=== PATIENT | female | born 1990 | race African-American/Black ===

== ENCOUNTER 2019-02-02 03:00 | Emergency (ER) | payer MEDICAID ==
[~2019-02-02] VITALS: Ht 170.2 cm; Wt 77.0 kg
[2019-02-02] MEDS ORDERED: LORAZEPAM 1MG TABLET PO ONE (03:45)
[2019-02-02 04:22] LABS: CLARITY URINE CLOUDY (CLEAR); COLOR URINE YELLOW (YELLOW); KETONES URINE NEGATIVE (NEGATIVE); LEUKOCYTE ESTERASE URINE NEGATIVE (NEGATIVE); NITRITE URINE NEGATIVE (NEGATIVE); OCCULT BLOOD URINE NEGATIVE (NEGATIVE); PROTEIN URINE 3+ (NEGATIVE); SPECIFIC GRAVITY URINE 1.036 (1.005-1.030)
[2019-02-02 04:23] LABS: BASOPHILS % 0.8 % (0.0-2.0); EOSINOPHILS % 0.6 % (0.0-5.0); HEMATOCRIT. 35.2 % (36.0-48.0); HEMOGLOBIN. 12.2 g/dL (12.0-16.0); LYMPHOCYTES % 28.2 % (20.0-50.0); MEAN CORPUSCULAR HEMOGLOBIN 31.1 pg (28.0-32.0); MEAN CORPUSCULAR VOLUME 89.8 fL (81.0-99.0); MEAN PLATELET VOLUME 8.8 fl (7.4-10.4); MONOCYTES % 7.5 % (2.0-8.0); NEUTROPHILS % 62.9 % (40.0-76.0); PLATELET 248 x1000/uL (130-400); RED BLOOD CELL COUNT 3.92 mill/uL (4.2-5.4); RED CELL DISTRIBUTION WIDTH 12.9 % (11.6-14.6)
[2019-02-02 04:30] LABS: CHLORIDE 108 mEq/L (98-107)
[2019-02-02 04:34] LABS: ETHANOL BLOOD < 10 mg/dL
[2019-02-02 04:37] LABS: CREATINE KINASE 79 IU/L (26-192)
[2019-02-02 04:45] LABS: *BARBITURATES SCREEN URINE NEGATIVE (NEGATIVE); *BENZODIAZEPINES SCREEN URINE NEGATIVE (NEGATIVE); *COCAINE SCREEN URINE NEGATIVE (NEGATIVE)
[2019-02-02 04:46] LABS: METHADONE URINE SCREEN NEGATIVE (NEGATIVE); OPIATES URINE SCREEN NEGATIVE (NEGATIVE); PHENCYCLIDINE URINE SCREEN NEGATIVE (NEGATIVE)
[2019-02-02 04:52] LABS: *AMPHETAMINES SCREEN URINE PRESUMTIVE POSITIVE (NEGATIVE); CANNABINOID URINE SCREEN PRESUMTIVE POSITIVE (NEGATIVE)
[2019-02-02 10:02] VITALS: BP 102/48
== END 2019-02-02 12:04 | disposition left against medical advice (07) ==
LOC: ER 03:13
DX: R44.3 Hallucinations, unspecified (principal); F31.9 Bipolar disorder, unspecified
CPT/HCPCS: 36415; 80305; 80307; 80320; 80329; 81003; 81025; 82550; 84443; 99284; G0480

== ENCOUNTER 2019-02-17 06:36 | Emergency (ER) | payer MEDICAID ==
[~2019-02-17] VITALS: Ht 160 cm; Wt 66.0 kg
[2019-02-17] MEDS ORDERED: OLANZAPINE 10 MG/VIAL IM ONE (06:45)
[2019-02-17] MEDS ORDERED: LORAZEPAM 2MG/ML CPJ IM ONE (06:45)
[2019-02-17 08:11] LABS: HEMATOCRIT. 38.6 % (36.0-48.0); HEMOGLOBIN. 13.3 g/dL (12.0-16.0); MEAN CORPUSCULAR HEMOGLOBIN 31.2 pg (28.0-32.0); MEAN CORPUSCULAR VOLUME 90.3 fL (81.0-99.0); RED BLOOD CELL COUNT 4.28 mill/uL (4.2-5.4)
[2019-02-17 08:12] LABS: MEAN PLATELET VOLUME 8.8 fl (7.4-10.4); PLATELET 227 x1000/uL (130-400); RED CELL DISTRIBUTION WIDTH 13.6 % (11.6-14.6)
[2019-02-17 08:19] LABS: CHLORIDE 113 mEq/L (98-107)
[2019-02-17 08:23] LABS: ETHANOL BLOOD < 10 mg/dL
[2019-02-17 08:30] LABS: HCG SCREEN NEGATIVE
[2019-02-17 09:28] LABS: CLARITY URINE CLOUDY (CLEAR); COLOR URINE YELLOW (YELLOW); KETONES URINE NEGATIVE (NEGATIVE); LEUKOCYTE ESTERASE URINE NEGATIVE (NEGATIVE); NITRITE URINE NEGATIVE (NEGATIVE); OCCULT BLOOD URINE 3+ (NEGATIVE); PROTEIN URINE 3+ (NEGATIVE); SPECIFIC GRAVITY URINE 1.018 (1.005-1.030)
[2019-02-17 09:54] LABS: PLATELET ESTIMATE NORMAL
[2019-02-17 10:14] LABS: *BARBITURATES SCREEN URINE NEGATIVE (NEGATIVE); *BENZODIAZEPINES SCREEN URINE NEGATIVE (NEGATIVE); *COCAINE SCREEN URINE NEGATIVE (NEGATIVE)
[2019-02-17 10:15] LABS: METHADONE URINE SCREEN NEGATIVE (NEGATIVE); OPIATES URINE SCREEN NEGATIVE (NEGATIVE); PHENCYCLIDINE URINE SCREEN NEGATIVE (NEGATIVE)
[2019-02-17 10:20] LABS: *AMPHETAMINES SCREEN URINE PRESUMTIVE POSITIVE (NEGATIVE); CANNABINOID URINE SCREEN PRESUMTIVE POSITIVE (NEGATIVE)
[2019-02-17] MEDS ORDERED: LEVOFLOXACIN 500MG TABLET PO ONE (11:30)
[2019-02-18] MEDS ORDERED: POTASSIUM CHLORIDE 20MEQ TABLET SR PO NR ×2 (11:45)
[2019-02-18] MEDS ORDERED: NITROFURANTOIN 100MG M/M CAPSULE PO ONE (15:00)
[2019-02-18 20:41] VITALS: BP 111/62
== END 2019-02-18 20:53 ==
LOC: ER 06:36
DX: F20.9 Schizophrenia, unspecified (principal); N39.0 Urinary tract infection, site not specified; F15.10 Other stimulant abuse, uncomplicated
CPT/HCPCS: 36415; 80053; 80305; 80307; 80320; 80329; 81003; 81025; 84703; 85025; 96372; 99285; J2060; J3490; G0480

== ENCOUNTER 2019-04-19 23:50 | Emergency (ER) | payer MEDICAID ==
[~2019-04-19] VITALS: Ht 165.1 cm; Wt 68.0 kg
[2019-04-20 02:53] LABS: BASOPHILS % 0.6 % (0.0-2.0); EOSINOPHILS % 1.4 % (0.0-5.0); HEMOGLOBIN. 12.4 g/dL (12.0-16.0); LYMPHOCYTES % 37.5 % (20.0-50.0); MEAN CORPUSCULAR HEMOGLOBIN 30.8 pg (28.0-32.0); MEAN CORPUSCULAR VOLUME 89.1 fL (81.0-99.0); MEAN PLATELET VOLUME 8.8 fl (7.4-10.4); MONOCYTES % 8.2 % (2.0-8.0); NEUTROPHILS % 52.3 % (40.0-76.0); PLATELET 230 x1000/uL (130-400); RED BLOOD CELL COUNT 4.04 mill/uL (4.2-5.4); RED CELL DISTRIBUTION WIDTH 12.3 % (11.6-14.6)
[2019-04-20 03:01] LABS: CHLORIDE 112 mEq/L (98-107)
[2019-04-20 03:04] LABS: ETHANOL BLOOD < 10 mg/dL
[2019-04-20 03:06] LABS: HCG SCREEN NEGATIVE
[2019-04-20] MEDS ORDERED: LORAZEPAM 1MG TABLET PO ONE (10:30)
[2019-04-20 11:28] LABS: CLARITY URINE CLOUDY (CLEAR); COLOR URINE DARK YELLOW (YELLOW); KETONES URINE TRACE (NEGATIVE); LEUKOCYTE ESTERASE URINE NEGATIVE (NEGATIVE); NITRITE URINE NEGATIVE (NEGATIVE); OCCULT BLOOD URINE NEGATIVE (NEGATIVE); PH URINE 6.5 (4.5-8.0); PROTEIN URINE 3+ (NEGATIVE); SPECIFIC GRAVITY URINE 1.041 (1.005-1.030)
[2019-04-20 12:06] LABS: *BARBITURATES SCREEN URINE NEGATIVE (NEGATIVE); *COCAINE SCREEN URINE NEGATIVE (NEGATIVE); METHADONE URINE SCREEN NEGATIVE (NEGATIVE); OPIATES URINE SCREEN NEGATIVE (NEGATIVE); PHENCYCLIDINE URINE SCREEN NEGATIVE (NEGATIVE)
[2019-04-20 12:26] LABS: *AMPHETAMINES SCREEN URINE PRESUMTIVE POSITIVE (NEGATIVE); *BENZODIAZEPINES SCREEN URINE PRESUMTIVE POSITIVE (NEGATIVE); CANNABINOID URINE SCREEN PRESUMTIVE POSITIVE (NEGATIVE)
[2019-04-20 20:32] VITALS: BP 102/64
== END 2019-04-20 20:33 ==
LOC: ER 23:50
DX: F19.10 Other psychoactive substance abuse, uncomplicated (principal); F20.0 Paranoid schizophrenia; F32.9 Major depressive disorder, single episode, unspecified; R45.851 Suicidal ideations; R45.850 Homicidal ideations; Z59.0 Homelessness
CPT/HCPCS: 36415; 71045; 80053; 80305; 80320; 81003; 84703; 85025; 93005; 99284; G0480